=== PATIENT | female | born 1930 | race African-American/Black ===

== ENCOUNTER 2020-05-05 17:01 | Inpatient (IN) ==
[~2020-05-05 17:01] MED LIST: LORazepam 2 MG/1 ML VIAL ONE
[2020-05-05] MEDS ORDERED: LORazepam 2 MG/1 ML VIAL IV STA (17:11)
[2020-05-05 17:16] LABS: Basophils % 0.4 % (0.0-0.8); Eosinophils % 0.2 % (0.00-10.9); Hematocrit 43.8 VOL% (35.7-47.0); Hemoglobin 14.2 GM/DL (12.0-16.0); Immature Granulocytes % 1.1 %; Immature Granulocytes Absolute 0.05 #; Lymphocytes # 0.9 10*3/uL (1.4-4.0); Lymphocytes % 19.5 % (21.3-54.2); Mean Corpuscular HGB Conc 32.4 GM/DL (32-36); Mean Corpuscular Volume 92.8 FL (87-102); Monocytes % 4.4 % (1.7-12.7); Neutrophils % 74.4 % (38.7-73.9); Platelet Count 217 T/CUMM (130-400); Red Blood Count 4.72 MC/CUMM (3.8-5.5); Red Cell Distribution Width 12.9 % (9.3-17.3); White Blood Count 4.8 T/CUMM (4-12)
[2020-05-05 17:25] LABS: INR 1.1; PT Patient Result 11.3 SECS (9.8-11.9); Partial Thromboplastin Time 31.5 SECS (23.9-33.8)
[2020-05-05 17:41] LABS: Alanine Aminotransferase 21 U/L (13-56); Albumin 3.7 G/DL (3.4-5.0); Alkaline Phosphatase 118 U/L (45-117); Aspartate Amino Transferase 15 U/L (0-37); Blood Urea Nitrogen 12 MG/DL (7-18); Calcium 8.7 MG/DL (8.5-10.1); Carbon Dioxide 27 MMOL/L (21-32); Estimated Glom Filtration Rate 51 ML/MIN; Glucose 403 MG/DL (74-106); Potassium 3.4 MMOL/L (3.5-5.1); Sodium 136 MMOL/L (136-145); Total Protein 6.9 G/DL (6.4-8.2)
[2020-05-05 18:08] LABS: Barbiturates Screen,Urine Negative (Negative); Benzodiazepines Screen,Urine Negative (Negative); Cannabinoid Screen,Urine Negative (Negative); Opiate Screen,Urine Negative (Negative); Phencyclidine Screen,Urine Negative (Negative)
[2020-05-05 18:10] LABS: Bilirubin,Urine Negative (Negative); Blood, Urine Small mg/dL (Negative); Glucose,Urine (UA) >=500 mg/dL (Negative); Ketones,Urine Negative (Negative); Mucus,Urine Occasional /LPF (Occasional); Nitrite,Urine Negative (Negative); Protein,Urine Negative; RBC,Urine 1 /HPF (0-4); Urine Appearance CLEAR (Clear); Urine Color Straw (Yellow); Urine Specific Gravity 1.011 (1.001-1.035); Urine Urobilinogen < 2.0 EU/DL (0.2-1.0)
[2020-05-05] MEDS ORDERED: ONDANSETRON 4 MG/2 ML VIAL IV PRN (18:30)
[2020-05-05] MEDS: METOPROLOL TARTRATE 25 MG TABLET PO SCH (21:32)
[2020-05-05] MEDS: ATORVASTATIN 40 MG TABLET PO SCH (21:32)
[2020-05-05] MEDS: ASPIRIN EC 325 MG TABLET PO SCH (21:32)
[2020-05-05] MEDS: INSULIN NPH/REGULAR 70/30 100 UNIT/ML SUBCUT SCH (21:45)
[2020-05-05] MEDS: LORazepam 2 MG/1 ML VIAL IV PRN (22:40)
[2020-05-06 07:17] LABS: Basophils % 0.3 % (0.0-0.8); Eosinophils % 0.5 % (0.00-10.9); Hematocrit 38.3 VOL% (35.7-47.0); Hemoglobin 12.5 GM/DL (12.0-16.0); Immature Granulocytes % 0.3 %; Immature Granulocytes Absolute 0.02 #; Lymphocytes # 0.8 10*3/uL (1.4-4.0); Lymphocytes % 14.3 % (21.3-54.2); Mean Corpuscular HGB Conc 32.6 GM/DL (32-36); Mean Corpuscular Volume 91.8 FL (87-102); Mean Platelet Volume 9.4 FL (9.6-12.0); Monocytes % 7.9 % (1.7-12.7); Neutrophils % 76.7 % (38.7-73.9); Platelet Count 181 T/CUMM (130-400); Red Blood Count 4.17 MC/CUMM (3.8-5.5); Red Cell Distribution Width 12.8 % (9.3-17.3); White Blood Count 5.8 T/CUMM (4-12)
[2020-05-06 07:37] LABS: Albumin 2.9 G/DL (3.4-5.0); Bilirubin,Total 1.6 MG/DL (0.2-1.0); Calcium 8.5 MG/DL (8.5-10.1); Osmolality,Calculated 274.8 MOS/KG (273-304); Potassium 3.2 MMOL/L (3.5-5.1); Total Protein 5.6 G/DL (6.4-8.2)
[2020-05-06] MEDS: PANTOPRAZOLE 40 MG VIAL IV SCH (10:17)
[2020-05-06] MEDS: INSULIN NPH/REGULAR 70/30 100 UNIT/ML SUBCUT SCH ×2 (10:34→21:00)
[2020-05-06] MEDS: METOPROLOL TARTRATE 25 MG TABLET PO SCH ×2 (10:34→20:08)
[2020-05-06] MEDS: CLOPIDOGREL 75 MG TABLET PO SCH (10:34)
[2020-05-06] MEDS: FUROSEMIDE 20 MG TABLET PO SCH (10:34)
[2020-05-06] MEDS ORDERED: GLUCAGON 1 MG VIAL IM PRN (15:44)
[2020-05-06] MEDS ORDERED: DEXTROSE 50% 25 GM/50 ML VIAL IV PRN (15:44)
[2020-05-06] MEDS ORDERED: DEXTROSE 10% 1,000 ML IV PRN (17:00)
[2020-05-06] MEDS: FAT EMULSION 20% 250 ML IV SCH (17:31)
[2020-05-06] MEDS: MULTIVITAMIN INJ 10 ML in AMINO ACIDS/DEXT/LYTES 4.25-5% 2,000 ML IV SCH (17:31)
[2020-05-06] MEDS: ASPIRIN EC 325 MG TABLET PO SCH (18:21)
[2020-05-06] MEDS: INSULIN REGULAR 100 UNIT/ML SUBCUT SCH (18:21)
[2020-05-06] MEDS: ATORVASTATIN 40 MG TABLET PO SCH (20:08)
[2020-05-07] MEDS: INSULIN REGULAR 100 UNIT/ML SUBCUT SCH ×4 (00:37→17:58)
[2020-05-07] MEDS: LORazepam 2 MG/1 ML VIAL IV PRN (01:05)
[2020-05-07] MEDS ORDERED: POTASSIUM CHLORIDE RIDER 10 MEQ in PREMIX 1 EACH IV PRN (07:15)
[2020-05-07 07:54] LABS: Albumin 2.8 G/DL (3.4-5.0); Bilirubin,Total 0.8 MG/DL (0.2-1.0); Calcium 8.3 MG/DL (8.5-10.1); Osmolality,Calculated 263.1 MOS/KG (273-304); Potassium 3.4 MMOL/L (3.5-5.1); Total Protein 5.9 G/DL (6.4-8.2)
[2020-05-07] MEDS: INSULIN NPH/REGULAR 70/30 100 UNIT/ML SUBCUT SCH (09:45)
[2020-05-07] MEDS: PANTOPRAZOLE 40 MG VIAL IV SCH (09:46)
[2020-05-07] MEDS: FUROSEMIDE 20 MG TABLET PO SCH (10:18)
[2020-05-07] MEDS: METOPROLOL TARTRATE 25 MG TABLET PO SCH ×2 (10:18→21:26)
[2020-05-07] MEDS: CLOPIDOGREL 75 MG TABLET PO SCH (10:19)
[2020-05-07] MEDS: FAT EMULSION 20% 250 ML IV SCH (15:37)
[2020-05-07] MEDS ORDERED: TUBERCULIN SKIN TEST 0.1 ML SYRINGE INTRADERM ONE (15:54)
[2020-05-07] MEDS: ASPIRIN EC 325 MG TABLET PO SCH (18:02)
[2020-05-07] MEDS: ATORVASTATIN 40 MG TABLET PO SCH (21:26)
[2020-05-08] MEDS: MULTIVITAMIN INJ 10 ML in AMINO ACIDS/DEXT/LYTES 4.25-5% 2,000 ML IV SCH (02:00)
[2020-05-08] MEDS: INSULIN REGULAR 100 UNIT/ML SUBCUT SCH ×4 (02:00→19:07)
[2020-05-08 05:26] LABS: Albumin 2.5 G/DL (3.4-5.0); Bilirubin,Total 0.9 MG/DL (0.2-1.0); Calcium 8.3 MG/DL (8.5-10.1); Osmolality,Calculated 262.1 MOS/KG (273-304); Potassium 3.4 MMOL/L (3.5-5.1); Total Protein 5.6 G/DL (6.4-8.2)
[2020-05-08] MEDS: PANTOPRAZOLE 40 MG VIAL IV SCH (09:48)
[2020-05-08] MEDS: FUROSEMIDE 20 MG TABLET PO SCH (09:55)
[2020-05-08] MEDS: METOPROLOL TARTRATE 25 MG TABLET PO SCH (09:57)
[2020-05-08] MEDS: CLOPIDOGREL 75 MG TABLET PO SCH (09:58)
[2020-05-08] MEDS: METOPROLOL TARTRATE 5 MG/5 ML VIAL IV SCH ×2 (14:58→22:41)
[2020-05-08] MEDS: FAT EMULSION 20% 250 ML IV SCH (14:58)
[2020-05-08] MEDS: ASPIRIN EC 325 MG TABLET PO SCH (18:32)
[2020-05-08] MEDS: ATORVASTATIN 40 MG TABLET PO SCH (22:42)
[2020-05-09] MEDS: INSULIN REGULAR 100 UNIT/ML SUBCUT SCH ×4 (01:00→17:56)
[2020-05-09] MEDS: METOPROLOL TARTRATE 5 MG/5 ML VIAL IV SCH ×2 (08:51→22:15)
[2020-05-09] MEDS: PANTOPRAZOLE 40 MG VIAL IV SCH (08:52)
[2020-05-09] MEDS: CLOPIDOGREL 75 MG TABLET PO SCH (09:06)
[2020-05-09] MEDS: FUROSEMIDE 20 MG TABLET PO SCH (09:06)
[2020-05-09] MEDS: MULTIVITAMIN INJ 10 ML in AMINO ACIDS/DEXT/LYTES 4.25-5% 2,000 ML IV SCH ×2 (11:15→17:54)
[2020-05-09] MEDS: FAT EMULSION 20% 250 ML IV SCH (14:19)
[2020-05-09] MEDS: ASPIRIN EC 325 MG TABLET PO SCH (18:14)
[2020-05-09] MEDS: ATORVASTATIN 40 MG TABLET PO SCH ×2 (22:15→22:16)
[2020-05-10] MEDS ORDERED: INSULIN REGULAR 100 UNIT/ML ONE (01:35)
[2020-05-10] MEDS: INSULIN REGULAR 100 UNIT/ML SUBCUT SCH ×4 (01:45→18:43)
[2020-05-10] MEDS: CLOPIDOGREL 75 MG TABLET PO SCH (08:18)
[2020-05-10] MEDS: FUROSEMIDE 20 MG TABLET PO SCH (08:18)
[2020-05-10] MEDS: PANTOPRAZOLE 40 MG VIAL IV SCH (08:18)
[2020-05-10] MEDS: METOPROLOL TARTRATE 5 MG/5 ML VIAL IV SCH ×2 (08:18→23:42)
[2020-05-10] MEDS: FAT EMULSION 20% 250 ML IV SCH (13:58)
[2020-05-10] MEDS: MULTIVITAMIN INJ 10 ML in AMINO ACIDS/DEXT/LYTES 4.25-5% 2,000 ML IV SCH (16:20)
[2020-05-10] MEDS: ATORVASTATIN 40 MG TABLET PO SCH (23:21)
[2020-05-11] MEDS: INSULIN REGULAR 100 UNIT/ML SUBCUT SCH ×4 (02:03→17:36)
[2020-05-11 04:14] LABS: Basophils % 0.3 % (0.0-0.8); Eosinophils # 0.1 10*3/uL (0.0-0.87); Eosinophils % 2.3 % (0.00-10.9); Hematocrit 40.5 VOL% (35.7-47.0); Immature Granulocytes % 0.3 %; Immature Granulocytes Absolute 0.02 #; Lymphocytes # 0.7 10*3/uL (1.4-4.0); Lymphocytes % 11.8 % (21.3-54.2); Mean Corpuscular HGB Conc 32.1 GM/DL (32-36); Mean Corpuscular Volume 92.7 FL (87-102); Mean Platelet Volume 10.1 FL (9.6-12.0); Monocytes % 9.7 % (1.7-12.7); Neutrophils % 75.6 % (38.7-73.9); Platelet Count 206 T/CUMM (130-400); Red Blood Count 4.37 MC/CUMM (3.8-5.5); Red Cell Distribution Width 12.8 % (9.3-17.3); White Blood Count 6.1 T/CUMM (4-12)
[2020-05-11 04:32] LABS: Albumin 2.2 G/DL (3.4-5.0); Bilirubin,Total 0.8 MG/DL (0.2-1.0); Calcium 8.7 MG/DL (8.5-10.1); Osmolality,Calculated 277.2 MOS/KG (273-304); Total Protein 5.5 G/DL (6.4-8.2)
[2020-05-11] MEDS: FUROSEMIDE 20 MG TABLET PO SCH (08:04)
[2020-05-11] MEDS: METOPROLOL TARTRATE 5 MG/5 ML VIAL IV SCH ×3 (09:10→23:52)
[2020-05-11] MEDS: PANTOPRAZOLE 40 MG VIAL IV SCH ×2 (09:11→10:24)
[2020-05-11] MEDS: FAT EMULSION 20% 250 ML IV SCH (13:21)
[2020-05-11] MEDS: MULTIVITAMIN INJ 10 ML in AMINO ACIDS/DEXT/LYTES 4.25-5% 2,000 ML IV SCH (16:22)
[2020-05-11] MEDS: LORazepam 2 MG/1 ML VIAL IV PRN (16:52)
[2020-05-11] MEDS: ATORVASTATIN 40 MG TABLET PO SCH (23:10)
[2020-05-12] MEDS: INSULIN REGULAR 100 UNIT/ML SUBCUT SCH ×4 (07:02→17:02)
[2020-05-12] MEDS: PANTOPRAZOLE 40 MG VIAL IV SCH (09:07)
[2020-05-12] MEDS: FUROSEMIDE 20 MG TABLET PO SCH (09:09)
[2020-05-12] MEDS: METOPROLOL TARTRATE 5 MG/5 ML VIAL IV SCH ×2 (09:09→21:39)
[2020-05-12] MEDS: FAT EMULSION 20% 250 ML IV SCH (13:10)
[2020-05-12 14:39] LABS: Glucose,CSF 114 MG/DL (40-70)
[2020-05-12 14:42] LABS: Lymphocytes,CSF 45 %; Monocytes,CSF 45 %; Neutrophils,CSF 9 %; Red Blood Cell,CSF 71 C/CUMM; White Blood Cell,CSF 2 C/CUMM
[2020-05-12 14:43] LABS: Appearance,CSF Clear
[2020-05-12] MEDS: LORazepam 2 MG/1 ML VIAL IV PRN (16:23)
[2020-05-12] MEDS: MULTIVITAMIN INJ 10 ML in AMINO ACIDS/DEXT/LYTES 4.25-5% 2,000 ML IV SCH (17:03)
[2020-05-13] MEDS: INSULIN REGULAR 100 UNIT/ML SUBCUT SCH ×4 (01:34→17:44)
[2020-05-13 05:21] LABS: Basophils % 0.6 % (0.0-0.8); Eosinophils # 0.1 10*3/uL (0.0-0.87); Eosinophils % 1.4 % (0.00-10.9); Hematocrit 40.2 VOL% (35.7-47.0); Hemoglobin 13.3 GM/DL (12.0-16.0); Immature Granulocytes % 0.4 %; Immature Granulocytes Absolute 0.03 #; Lymphocytes # 0.8 10*3/uL (1.4-4.0); Lymphocytes % 10.7 % (21.3-54.2); Mean Corpuscular HGB Conc 33.1 GM/DL (32-36); Mean Corpuscular Volume 90.5 FL (87-102); Mean Platelet Volume 12.3 FL (9.6-12.0); Monocytes % 9.2 % (1.7-12.7); Neutrophils % 77.7 % (38.7-73.9); Platelet Count 162 T/CUMM (130-400); Red Blood Count 4.44 MC/CUMM (3.8-5.5); Red Cell Distribution Width 12.5 % (9.3-17.3); White Blood Count 7.3 T/CUMM (4-12)
[2020-05-13 05:40] LABS: Albumin 2.5 G/DL (3.4-5.0); Bilirubin,Total 0.9 MG/DL (0.2-1.0); Osmolality,Calculated 273.4 MOS/KG (273-304); Potassium 3.9 MMOL/L (3.5-5.1); Total Protein 5.8 G/DL (6.4-8.2)
[2020-05-13] MEDS: PANTOPRAZOLE 40 MG VIAL IV SCH (08:31)
[2020-05-13] MEDS: METOPROLOL TARTRATE 5 MG/5 ML VIAL IV SCH ×3 (08:32→22:14)
[2020-05-13] MEDS: CLOPIDOGREL 75 MG TABLET PO SCH (10:07)
[2020-05-13 10:11] LABS: PT Patient Result 10.7 SECS (9.8-11.9)
[2020-05-13] MEDS ORDERED: TUBERCULIN SKIN TEST 0.1 ML SYRINGE INTRADERM ONE (10:24)
[2020-05-13 11:24] LABS: VDRL Spinal Fluid Negative (Negative)
[2020-05-13] MEDS: LACTATED RINGERS 1,000 ML IV SCH (12:14)
[2020-05-13] MEDS ORDERED: LIDOCAINE 2% 5 ML VIAL ONE (13:56)
[2020-05-13] MEDS ORDERED: propofoL 200 MG/20 ML VIAL IV ONE (13:56)
[2020-05-13] MEDS: FAT EMULSION 20% 250 ML IV SCH (15:05)
[2020-05-13] MEDS: LEVOFLOXACIN INJ 500 MG in PREMIX 1 EACH IV SCH (17:00)
[2020-05-13] MEDS: MULTIVITAMIN INJ 10 ML in AMINO ACIDS/DEXT/LYTES 4.25-5% 2,000 ML IV SCH (17:45)
[2020-05-13] MEDS: ASPIRIN EC 325 MG TABLET PO SCH (17:45)
[2020-05-13] MEDS ORDERED: LORazepam 2 MG/1 ML VIAL IV PRN (18:09)
[2020-05-14] MEDS: INSULIN REGULAR 100 UNIT/ML SUBCUT SCH ×3 (01:27→12:14)
[2020-05-14 05:16] LABS: Calcium 8.7 MG/DL (8.5-10.1); Osmolality,Calculated 274.2 MOS/KG (273-304); Potassium 3.8 MMOL/L (3.5-5.1)
[2020-05-14] MEDS: METOPROLOL TARTRATE 5 MG/5 ML VIAL IV SCH (10:17)
[2020-05-14] MEDS: CLOPIDOGREL 75 MG TABLET PO SCH (10:17)
[2020-05-14] MEDS: PANTOPRAZOLE 40 MG VIAL IV SCH (10:24)
[2020-05-14] MEDS: LACTATED RINGERS 1,000 ML IV SCH (10:59)
[2020-05-14 11:15] LABS: Specimen Source CS
[2020-05-14] MEDS: LEVOFLOXACIN INJ 500 MG in PREMIX 1 EACH IV SCH (16:15)
[2020-05-14 16:53] VITALS: BP 131/69
[2020-05-15 15:46] LABS: M. Tuberculosis PCR Result Negative (Negative); M. Tuberculosis PCR Source CSF
== END 2020-05-14 17:58 | DRG 101 ==
LOC: N.EDINP 17:01 → N.ED 17:01 → OBSVTOIN 18:28 → N.EDINP 20:06 → N.TELES 21:37
PROVIDERS: ADMIT Internal Medicine; ATTEND Internal Medicine
PROC: EGDWPEG (ICD-10-PCS; 2020-05-13 09:20)

== ENCOUNTER 2020-05-20 22:33 | Observation (INO) ==
[2020-05-21 00:12] LABS: Basophils # 0.1 10*3/uL (0.0-0.2); Basophils % 0.6 % (0.0-0.8); Eosinophils # 0.1 10*3/uL (0.0-0.87); Eosinophils % 1.1 % (0.00-10.9); Hematocrit 39.8 VOL% (35.7-47.0); Hemoglobin 13.4 GM/DL (12.0-16.0); Immature Granulocytes % 0.5 %; Immature Granulocytes Absolute 0.04 #; Lymphocytes # 0.8 10*3/uL (1.4-4.0); Lymphocytes % 9.3 % (21.3-54.2); Mean Corpuscular HGB Conc 33.7 GM/DL (32-36); Mean Platelet Volume 9.5 FL (9.6-12.0); Monocytes % 9.5 % (1.7-12.7); Platelet Count 405 T/CUMM (130-400); Red Blood Count 4.47 MC/CUMM (3.8-5.5); White Blood Count 8.2 T/CUMM (4-12)
[2020-05-21 00:28] LABS: Albumin 2.5 G/DL (3.4-5.0); Bilirubin,Total 0.4 MG/DL (0.2-1.0); Calcium 8.6 MG/DL (8.5-10.1); Osmolality,Calculated 274.5 MOS/KG (273-304); Potassium 3.9 MMOL/L (3.5-5.1); Total Protein 5.9 G/DL (6.4-8.2)
[2020-05-21] MEDS ORDERED: cefTRIAXone 1,000 MG VIAL ONE (03:57)
[2020-05-21] MEDS ORDERED: ACETAMINOPHEN 325 MG TABLET PO ONE (05:25)
[2020-05-21] MEDS ORDERED: ONDANSETRON 4 MG/2 ML VIAL IV PRN (05:26)
[2020-05-21] MEDS ORDERED: GLUCAGON 1 MG VIAL IM PRN (05:26)
[2020-05-21] MEDS ORDERED: ACETAMINOPHEN 325 MG TABLET PO PRN (05:26)
[2020-05-21] MEDS ORDERED: DEXTROSE 50% 25 GM/50 ML VIAL IV PRN (05:26)
[2020-05-21] MEDS ORDERED: SODIUM CHLORIDE 0.9% 1,000 ML IV SCH (05:30)
[2020-05-21 06:57] LABS: Urine Appearance Slightly Hazy (Clear); Urine Color Yellow (Yellow)
[2020-05-21 06:58] LABS: Bilirubin,Urine Negative (Negative); Blood, Urine Negative (Negative); Glucose,Urine (UA) >500 mg/dL (Negative); Ketones,Urine Negative (Negative); Nitrite,Urine Negative (Negative); Protein,Urine Negative; RBC,Urine 2 /HPF (0-4); Squamous Epithelial Cell,Urine Occasional /HPF (0-10); Urine Specific Gravity 1.033 (1.001-1.035); WBC,Urine 180 /HPF (0-6)
[2020-05-21 06:59] LABS: Bacteria,Urine Occasional /HPF (Few); Mucus,Urine Occasional /LPF (Occasional)
[2020-05-21] MEDS: NITROFURANTOIN MACROCRYSTALS 50 MG CAPSULE PO SCH (16:23)
[2020-05-22] MEDS ORDERED: cefTRIAXone 1,000 MG in SODIUM CHLORIDE 0.9% 100 ML IV SCH (05:30)
[2020-05-22 05:47] LABS: Basophils % 0.5 % (0.0-0.8); Eosinophils # 0.2 10*3/uL (0.0-0.87); Eosinophils % 3.4 % (0.00-10.9); Hemoglobin 12.3 GM/DL (12.0-16.0); Immature Granulocytes % 0.2 %; Immature Granulocytes Absolute 0.01 #; Lymphocytes # 0.9 10*3/uL (1.4-4.0); Lymphocytes % 16.9 % (21.3-54.2); Mean Corpuscular HGB Conc 32.4 GM/DL (32-36); Mean Platelet Volume 9.6 FL (9.6-12.0); Monocytes % 10.6 % (1.7-12.7); Neutrophils % 68.4 % (38.7-73.9); Platelet Count 409 T/CUMM (130-400); Red Blood Count 4.13 MC/CUMM (3.8-5.5); White Blood Count 5.6 T/CUMM (4-12)
[2020-05-22 06:09] LABS: Calcium 8.6 MG/DL (8.5-10.1); Osmolality,Calculated 282.1 MOS/KG (273-304); Potassium 3.7 MMOL/L (3.5-5.1)
[2020-05-22] MEDS: NITROFURANTOIN MACROCRYSTALS 50 MG CAPSULE PO SCH ×2 (08:47→16:48)
[2020-05-22] MEDS ORDERED: LACTULOSE 320 GM/480 ML BOTTLE PO PRN (09:59)
[2020-05-22] MEDS: ASPIRIN EC 325 MG TABLET PO SCH (10:28)
[2020-05-22] MEDS: levETIRAcetam 500 MG TABLET PO SCH ×2 (10:28→20:55)
[2020-05-22] MEDS: METOPROLOL TARTRATE 25 MG TABLET PO SCH ×2 (10:28→20:55)
[2020-05-22] MEDS: CLOPIDOGREL 75 MG TABLET PO SCH (10:29)
[2020-05-22] MEDS ORDERED: LACTULOSE 20 GM/30 ML UDCUP PO PRN (10:30)
[2020-05-22] MEDS: INSULIN NPH/REGULAR 70/30 100 UNIT/ML SUBCUT SCH (16:49)
[2020-05-22] MEDS: POLYVINYL ALCOHOL 1.4% OPH SOLN 15 ML BOTTLE BOTH EYES PRN (18:20)
[2020-05-23] MEDS: ASPIRIN EC 325 MG TABLET PO SCH (08:32)
[2020-05-23] MEDS: FAMOTIDINE 20 MG TABLET PO SCH (08:33)
[2020-05-23] MEDS: NITROFURANTOIN MACROCRYSTALS 50 MG CAPSULE PO SCH ×2 (08:33→16:51)
[2020-05-23] MEDS: levETIRAcetam 500 MG TABLET PO SCH ×2 (08:33→20:42)
[2020-05-23] MEDS: CLOPIDOGREL 75 MG TABLET PO SCH (08:33)
[2020-05-23] MEDS: METOPROLOL TARTRATE 25 MG TABLET PO SCH ×2 (08:33→20:42)
[2020-05-23] MEDS: INSULIN NPH/REGULAR 70/30 100 UNIT/ML SUBCUT SCH ×2 (08:34→16:51)
[2020-05-23] MEDS: MAGNESIUM CHLORIDE 64 MG TABLET PO SCH (11:30)
[2020-05-23] MEDS: POLYVINYL ALCOHOL 1.4% OPH SOLN 15 ML BOTTLE BOTH EYES PRN (21:03)
[2020-05-24 06:05] LABS: Calcium 8.8 MG/DL (8.5-10.1); Osmolality,Calculated 279.2 MOS/KG (273-304); Potassium 3.9 MMOL/L (3.5-5.1)
[2020-05-24] MEDS: NITROFURANTOIN MACROCRYSTALS 50 MG CAPSULE PO SCH ×2 (08:15→17:44)
[2020-05-24] MEDS: levETIRAcetam 500 MG TABLET PO SCH ×2 (08:16→21:41)
[2020-05-24] MEDS: ASPIRIN EC 325 MG TABLET PO SCH (08:16)
[2020-05-24] MEDS: METOPROLOL TARTRATE 25 MG TABLET PO SCH ×2 (08:16→21:41)
[2020-05-24] MEDS: CLOPIDOGREL 75 MG TABLET PO SCH (08:16)
[2020-05-24] MEDS: FAMOTIDINE 20 MG TABLET PO SCH (08:16)
[2020-05-24] MEDS: MAGNESIUM CHLORIDE 64 MG TABLET PO SCH (08:17)
[2020-05-24] MEDS: INSULIN NPH/REGULAR 70/30 100 UNIT/ML SUBCUT SCH ×2 (08:17→17:40)
[2020-05-24] MEDS: POLYVINYL ALCOHOL 1.4% OPH SOLN 15 ML BOTTLE BOTH EYES PRN (08:17)
[2020-05-24] MEDS ORDERED: risperiDONE 1 MG TABLET PO SCH (21:00)
[2020-05-25] MEDS: CLOPIDOGREL 75 MG TABLET PO SCH (09:01)
[2020-05-25] MEDS: levETIRAcetam 500 MG TABLET PO SCH (09:01)
[2020-05-25] MEDS: INSULIN NPH/REGULAR 70/30 100 UNIT/ML SUBCUT SCH ×2 (09:01→17:26)
[2020-05-25] MEDS: FAMOTIDINE 20 MG TABLET PO SCH (09:02)
[2020-05-25] MEDS: MAGNESIUM CHLORIDE 64 MG TABLET PO SCH (09:02)
[2020-05-25] MEDS: NITROFURANTOIN MACROCRYSTALS 50 MG CAPSULE PO SCH ×2 (09:02→17:26)
[2020-05-25] MEDS: METOPROLOL TARTRATE 25 MG TABLET PO SCH (09:02)
[2020-05-25] MEDS: ASPIRIN EC 325 MG TABLET PO SCH (09:02)
[2020-05-25 19:30] VITALS: BP 117/63
== END 2020-05-25 21:16 ==
LOC: EDUNIT# → N.EDINP 22:33 → N.ED 22:33 → N.EDINP 05-21 06:40 → N.3E 05-21 06:41
PROVIDERS: ADMIT Internal Medicine; ATTEND Internal Medicine

== ENCOUNTER 2020-11-20 21:04 | Inpatient (IN) ==
[2020-11-20] MEDS ORDERED: PANTOPRAZOLE 40 MG VIAL IV STA (21:29)
[2020-11-20] MEDS ORDERED: ONDANSETRON 4 MG/2 ML VIAL IV ONE (21:29)
[2020-11-20] MEDS ORDERED: SODIUM CHLORIDE 0.9% 1,000 ML IV STA (21:29)
[2020-11-20 21:36] LABS: Basophils % 0.4 % (0.0-0.8); Eosinophils # 0.1 10*3/uL (0.0-0.87); Eosinophils % 1.7 % (0.00-10.9); Hematocrit 33.8 VOL% (35.7-47.0); Hemoglobin 10.5 GM/DL (12.0-16.0); Immature Granulocytes % 0.4 %; Immature Granulocytes Absolute 0.03 #; Lymphocytes # 1.3 10*3/uL (1.4-4.0); Lymphocytes % 17.4 % (21.3-54.2); Mean Corpuscular HGB Conc 31.1 GM/DL (32-36); Mean Corpuscular Volume 94.2 FL (87-102); Mean Platelet Volume 10.1 FL (9.6-12.0); Monocytes % 8.6 % (1.7-12.7); Neutrophils % 71.5 % (38.7-73.9); Platelet Count 311 T/CUMM (130-400); Red Blood Count 3.59 MC/CUMM (3.8-5.5); Red Cell Distribution Width 13.2 % (9.3-17.3); White Blood Count 7.5 T/CUMM (4-12)
[2020-11-20 21:42] LABS: PT Patient Result 11.7 SECS (10.5-12.0)
[2020-11-20 21:53] LABS: Alanine Aminotransferase 13 U/L (13-56); Albumin 2.1 G/DL (3.4-5.0); Alkaline Phosphatase 84 U/L (45-117); Aspartate Amino Transferase 11 U/L (0-37); Bilirubin,Total < 0.39 MG/DL (0.20-1.00); Blood Urea Nitrogen 19 MG/DL (7-18); Calcium 8.6 MG/DL (8.5-10.1); Carbon Dioxide 31 MMOL/L (21-32); Estimated Glom Filtration Rate 94 ML/MIN; Glucose 208 MG/DL (74-106); Osmolality,Calculated 290.1 MOS/KG (273-304); Potassium 3.7 MMOL/L (3.5-5.1); Sodium 142 MMOL/L (136-145); Total Protein 5.6 G/DL (6.4-8.2)
[2020-11-20] MEDS ORDERED: SODIUM CHLORIDE 0.9% 1,000 ML IV PRN (22:35)
[2020-11-20] MEDS ORDERED: ACETAMINOPHEN 325 MG TABLET PO PRN (22:39)
[2020-11-20] MEDS ORDERED: ONDANSETRON 4 MG/2 ML VIAL IV PRN (22:39)
[2020-11-21] MEDS: SODIUM CHLORIDE 0.9% 1,000 ML IV SCH ×3 (01:55→16:52)
[2020-11-21 02:47] LABS: Hematocrit 30.7 VOL% (35.7-47.0); Hemoglobin 9.6 GM/DL (12.0-16.0)
[2020-11-21 06:44] LABS: Basophils % 0.4 % (0.0-0.8); Eosinophils # 0.1 10*3/uL (0.0-0.87); Eosinophils % 1.6 % (0.00-10.9); Hematocrit 28.5 VOL% (35.7-47.0); Hemoglobin 8.8 GM/DL (12.0-16.0); Immature Granulocytes % 0.4 %; Immature Granulocytes Absolute 0.02 #; Lymphocytes # 1.1 10*3/uL (1.4-4.0); Lymphocytes % 19.6 % (21.3-54.2); Mean Corpuscular HGB Conc 30.9 GM/DL (32-36); Mean Corpuscular Volume 94.7 FL (87-102); Monocytes % 7.5 % (1.7-12.7); Neutrophils % 70.5 % (38.7-73.9); Platelet Count 252 T/CUMM (130-400); Red Blood Count 3.01 MC/CUMM (3.8-5.5); Red Cell Distribution Width 13.2 % (9.3-17.3); White Blood Count 5.6 T/CUMM (4-12)
[2020-11-21 06:57] LABS: Bilirubin,Total 1.2 MG/DL (0.20-1.00); Calcium 8.4 MG/DL (8.5-10.1); Osmolality,Calculated 290.8 MOS/KG (273-304); Potassium 3.9 MMOL/L (3.5-5.1); Total Protein 5.4 G/DL (6.4-8.2)
[2020-11-21] MEDS: DOCUSATE SODIUM 100 MG CAPSULE PO SCH ×2 (08:26→20:19)
[2020-11-21 08:39] LABS: Hematocrit 27.8 VOL% (35.7-47.0); Hemoglobin 8.8 GM/DL (12.0-16.0)
[2020-11-21] MEDS: PANTOPRAZOLE 40 MG VIAL IV SCH ×2 (08:52→20:20)
[2020-11-21 11:38] LABS: Hematocrit 26.9 VOL% (35.7-47.0); Hemoglobin 8.6 GM/DL (12.0-16.0)
[2020-11-21] MEDS: levETIRAcetam 500 MG TABLET PO SCH ×2 (12:18→20:21)
[2020-11-21 15:51] LABS: Hematocrit 25.3 VOL% (35.7-47.0); Hemoglobin 8.1 GM/DL (12.0-16.0)
[2020-11-21] MEDS: LACTULOSE 20 GM/30 ML UDCUP PO SCH (20:19)
[2020-11-21] MEDS: METOPROLOL TARTRATE 50 MG TABLET PO SCH (20:21)
[2020-11-22] MEDS: SODIUM CHLORIDE 0.9% 1,000 ML IV SCH ×6 (00:02→22:00)
[2020-11-22 08:02] LABS: Basophils % 0.5 % (0.0-0.8); Eosinophils # 0.4 10*3/uL (0.0-0.87); Eosinophils % 5.6 % (0.00-10.9); Hematocrit 31.8 VOL% (35.7-47.0); Hemoglobin 10.1 GM/DL (12.0-16.0); Immature Granulocytes % 0.5 %; Immature Granulocytes Absolute 0.03 #; Lymphocytes # 1.2 10*3/uL (1.4-4.0); Lymphocytes % 18.6 % (21.3-54.2); Mean Corpuscular HGB Conc 31.8 GM/DL (32-36); Mean Corpuscular Volume 93.8 FL (87-102); Monocytes % 7.6 % (1.7-12.7); Neutrophils % 67.2 % (38.7-73.9); Platelet Count 258 T/CUMM (130-400); Red Blood Count 3.39 MC/CUMM (3.8-5.5); Red Cell Distribution Width 13.2 % (9.3-17.3); White Blood Count 6.6 T/CUMM (4-12)
[2020-11-22] MEDS: LACTULOSE 20 GM/30 ML UDCUP PO SCH ×2 (10:38→21:53)
[2020-11-22] MEDS: DOCUSATE SODIUM 100 MG CAPSULE PO SCH ×2 (10:39→21:55)
[2020-11-22] MEDS: METOPROLOL TARTRATE 50 MG TABLET PO SCH ×2 (10:40→21:55)
[2020-11-22] MEDS: levETIRAcetam 500 MG TABLET PO SCH ×3 (10:40→21:55)
[2020-11-22] MEDS: PANTOPRAZOLE 40 MG VIAL IV SCH ×2 (10:40→23:40)
[2020-11-22] MEDS: risperiDONE 0.25 MG TABLET PO SCH ×2 (10:43→10:50)
[2020-11-23] MEDS: SODIUM CHLORIDE 0.9% 1,000 ML IV SCH ×4 (05:18→20:43)
[2020-11-23 05:31] LABS: Basophils % 0.3 % (0.0-0.8); Eosinophils # 0.3 10*3/uL (0.0-0.87); Eosinophils % 4.1 % (0.00-10.9); Hematocrit 29.5 VOL% (35.7-47.0); Hemoglobin 9.3 GM/DL (12.0-16.0); Immature Granulocytes % 0.3 %; Immature Granulocytes Absolute 0.02 #; Lymphocytes % 15.4 % (21.3-54.2); Mean Corpuscular HGB Conc 31.5 GM/DL (32-36); Mean Corpuscular Volume 93.4 FL (87-102); Mean Platelet Volume 9.4 FL (9.6-12.0); Monocytes % 7.4 % (1.7-12.7); Neutrophils % 72.5 % (38.7-73.9); Platelet Count 245 T/CUMM (130-400); Red Blood Count 3.16 MC/CUMM (3.8-5.5); Red Cell Distribution Width 13.2 % (9.3-17.3); White Blood Count 6.4 T/CUMM (4-12)
[2020-11-23 05:50] LABS: Calcium 8.7 MG/DL (8.5-10.1); Osmolality,Calculated 283.1 MOS/KG (273-304); Potassium 3.5 MMOL/L (3.5-5.1)
[2020-11-23] MEDS: METOPROLOL TARTRATE 50 MG TABLET PO SCH ×2 (09:25→21:04)
[2020-11-23] MEDS: DOCUSATE SODIUM 100 MG CAPSULE PO SCH ×2 (09:25→21:03)
[2020-11-23] MEDS: risperiDONE 0.25 MG TABLET PO SCH (09:25)
[2020-11-23] MEDS: levETIRAcetam 500 MG TABLET PO SCH ×2 (09:25→21:03)
[2020-11-23] MEDS: LACTULOSE 20 GM/30 ML UDCUP PO SCH ×2 (09:25→21:03)
[2020-11-23] MEDS: PANTOPRAZOLE 40 MG VIAL IV SCH ×2 (09:26→20:43)
[2020-11-24] MEDS: SODIUM CHLORIDE 0.9% 1,000 ML IV SCH ×4 (00:06→11:58)
[2020-11-24 05:11] LABS: Basophils % 0.5 % (0.0-0.8); Eosinophils # 0.2 10*3/uL (0.0-0.87); Eosinophils % 4.8 % (0.00-10.9); Hematocrit 31.2 VOL% (35.7-47.0); Hemoglobin 9.9 GM/DL (12.0-16.0); Immature Granulocytes % 0.2 %; Immature Granulocytes Absolute 0.01 #; Lymphocytes # 0.9 10*3/uL (1.4-4.0); Lymphocytes % 19.5 % (21.3-54.2); Mean Corpuscular HGB Conc 31.7 GM/DL (32-36); Mean Platelet Volume 10.1 FL (9.6-12.0); Monocytes % 7.8 % (1.7-12.7); Neutrophils % 67.2 % (38.7-73.9); Platelet Count 270 T/CUMM (130-400); Red Blood Count 3.32 MC/CUMM (3.8-5.5); Red Cell Distribution Width 13.1 % (9.3-17.3); White Blood Count 4.4 T/CUMM (4-12)
[2020-11-24 05:39] LABS: Calcium 8.8 MG/DL (8.5-10.1); Osmolality,Calculated 283.8 MOS/KG (273-304); Potassium 3.1 MMOL/L (3.5-5.1)
[2020-11-24] MEDS: METOPROLOL TARTRATE 50 MG TABLET PO SCH ×2 (09:50→14:17)
[2020-11-24] MEDS: LACTULOSE 20 GM/30 ML UDCUP PO SCH (09:50)
[2020-11-24] MEDS: DOCUSATE SODIUM 100 MG CAPSULE PO SCH (09:50)
[2020-11-24] MEDS: levETIRAcetam 500 MG TABLET PO SCH (09:50)
[2020-11-24] MEDS: risperiDONE 0.25 MG TABLET PO SCH (09:51)
[2020-11-24] MEDS: PANTOPRAZOLE 40 MG VIAL IV SCH (09:58)
[2020-11-24 16:42] VITALS: BP 154/84
[2020-11-24] MEDS ORDERED: POTASSIUM CHLORIDE 20 MEQ TABLET PO ONE (17:33)
== END 2020-11-24 18:29 | DRG 377 ==
LOC: EDUNIT# → EDBD → N.ED 21:04 → N.EDINP 22:39 → N.5E 23:33 → N.TELEN 11-21 00:04
PROVIDERS: ADMIT Internal Medicine; ATTEND Internal Medicine